=== PATIENT | female | born 1990 | race African-American/Black ===

== ENCOUNTER 2023-06-09 12:38 | Emergency (ER) | payer OTHER ==
[~2023-06-09] VITALS: Ht 162.6 cm; Wt 73.6 kg
[2023-06-09 12:41] VITALS: TEMP 98.3
[2023-06-09 13:29] LABS: BASOPHILS % (AUTO) 0.6 % (0.0-2.0); EOSINOPHILS % (AUTO) 1.2 % (1.0-6.0); HEMATOCRIT 34.8 % (36-46); HEMOGLOBIN 11.6 g/dL (12.0-16.0); LYMPHOCYTES # (AUTO) 2.3 K/uL (1.0-4.8); LYMPHOCYTES % (AUTO) 39.1 % (22.0-44.0); MEAN CORPUSCULAR HEMOGLOBIN 28.6 pg (26.0-34.0); MEAN CORPUSCULAR HGB CONC 33.4 G/dL (31.0-37.0); MEAN CORPUSCULAR VOLUME 86 fL (80-100); MONOCYTES # (AUTO) 0.3 K/uL (0.1-1.0); NEUTROPHILS # (AUTO) 3.1 K/uL (1.8-7.7); NEUTROPHILS % (AUTO) 54.1 % (40.0-70.0); PLATELET COUNT (AUTO) 239 K/uL (150-450); RED BLOOD CELL COUNT(AUTO) 4.06 MIL/uL (4.00-5.20); WHITE BLOOD COUNT (AUTO) 5.8 K/uL (4.5-11.0)
[2023-06-09 13:36] LABS: ANION GAP 9 mmol/L (8-16); CARBON DIOXIDE 25 mmol/L (22-29); CHLORIDE 104 mmol/L (98-107); CREATININE 0.67 mg/dL (0.60-1.30); GLOMERULAR FILTR. RATE CALC > 60 mL/min (>60); GLUCOSE,RANDOM 93 mg/dL (70-110); POTASSIUM 3.9 mmol/L (3.5-5.1); SODIUM SERUM 138 mmol/L (136-145); UREA NITROGEN, BLOOD 9 mg/dL (7-18)
[2023-06-09 13:40] LABS: PROTHROMBIN TIME 10.2 SEC (9.4-11.6)
[2023-06-09 13:44] LABS: TROPONIN I-HIGH SENSITIVITY 7 ng/L (<51)
[2023-06-09 13:49] LABS: B-TYPE NATRIURETIC PEPTIDE 42 pg/mL (0-100)
[2023-06-09 14:02] LABS: ALANINE AMINOTRANSFERASE 20 U/L (12-78); ALBUMIN 3.6 g/dL (3.4-5.0); ALKALINE PHOSPHATASE 39 U/L (46-116); ASPARTATE AMINOTRANSFERASE 17 U/L (15-37); BILIRUBIN,TOTAL 0.3 mg/dL (0.1-1.0); CREATINE KINASE, TOTAL ONLY 90 U/L (26-192); TOTAL PROTEIN, SERUM 7.6 g/dL (6.4-8.2)
[2023-06-09 14:18] LABS: APPEARANCE,URINE CLEAR (CLEAR); BILIRUBIN,URINE NEGATIVE (NEGATIVE); COLOR,URINE LIGHT YELLOW (YELLOW); GLUCOSE, URINE (UA) NEGATIVE (NEGATIVE); KETONES,URINE NEGATIVE (NEGATIVE); LEUKOCYTE ESTERASE ,URINE NEGATIVE (NEGATIVE); NITRATE,URINE NEGATIVE (NEGATIVE); OCCULT BLOOD,URINE NEGATIVE (NEGATIVE); PH,URINE 6.5 (5.0-8.0); PH,URINE DRUG SCREEN 6.5 (5.0-8.0); PROTEIN,URINE NEGATIVE (NEGATIVE); SPECIFIC GRAVITIY, URINE 1.021 (1.003-1.030); UROBILINOGEN,URINE <=1.0 mg/dL (<=1.0)
[2023-06-09 14:19] VITALS: BP 120/77; PULSE 79; RESP 16
[2023-06-09 14:23] LABS: ALCOHOL, URINE DRUG SCREEN NEGATIVE (NEGATIVE); AMPHET/METH SCREEN,URINE NEGATIVE (NEGATIVE); BARBITURATE SCREEN, URINE NEGATIVE (NEGATIVE); BENZODIAZEPINES SCREEN,URINE NEGATIVE (NEGATIVE); CANNABINOID SCREEN,URINE POSITIVE (NEGATIVE); COCAINE SCREEN,URINE NEGATIVE (NEGATIVE); METHADONE SCREEN, URINE NEGATIVE (NEGATIVE); OPIATE SCREEN,URINE NEGATIVE (NEGATIVE); PHENCYCLIDINE SCREEN,URINE NEGATIVE (NEGATIVE)
[2023-06-09 14:24] LABS: COVID AG,FIA SOURCE NASAL SWAB
[2023-06-09 14:48] LABS: SARS-COV2 (COVID) ANTIGEN,FIA Negative (Negative)
[2023-06-09 14:49] LABS: INFLUENZA TYPE A NEGATIVE FOR TYPE A (NEGATIVE); INFLUENZA TYPE B NEGATIVE FOR TYPE B (NEGATIVE)
[2023-06-09] MEDS ORDERED: IBUP-1492 PO (16:08)
== END 2023-06-09 17:08 | disposition home or self-care (01) ==
LOC: EMS 13:20
DX: J06.9 Acute upper respiratory infection, unspecified (principal); R07.89 Other chest pain; F10.20 Alcohol dependence, uncomplicated; J45.909 Unspecified asthma, uncomplicated; F12.90 Cannabis use, unspecified, uncomplicated; Z88.8 Allergy status to other drugs, medicaments and biological substances; Z20.822 Contact with and (suspected) exposure to COVID-19
CPT/HCPCS: 71045; 80053; 80307; 81003; 82550; 83880; 84484; 85025; 85610; 85730; 87804; 93005; 99285; 36415-L1; 36415-TC

== ENCOUNTER 2023-07-06 09:35 | Emergency (ER) | payer OTHER ==
[~2023-07-06] VITALS: Ht 160 cm; Wt 65.9 kg
[~2023-07-06 09:35] MED LIST: IBUP-1492 PO
[2023-07-06 09:40] VITALS: TEMP 98.4
[2023-07-06] MEDS ORDERED: GUAIFDM PO (09:45)
[2023-07-06] MEDS ORDERED: ACET-2080 PO (09:45)
[2023-07-06] MEDS ORDERED: ALBU18HF12 IH (09:45)
[2023-07-06] MEDS ORDERED: IBUP-1554 PO (09:45)
[2023-07-06 10:19] LABS: BASOPHILS % (AUTO) 0.7 % (0.0-2.0); EOSINOPHILS % (AUTO) 0.7 % (1.0-6.0); HEMATOCRIT 36.1 % (36-46); HEMOGLOBIN 12.2 g/dL (12.0-16.0); LYMPHOCYTES # (AUTO) 2.7 K/uL (1.0-4.8); MEAN CORPUSCULAR HGB CONC 33.7 G/dL (31.0-37.0); MEAN CORPUSCULAR VOLUME 86 fL (80-100); MONOCYTES # (AUTO) 0.4 K/uL (0.1-1.0); MONOCYTES % (AUTO) 4.9 % (2.0-9.0); NEUTROPHILS # (AUTO) 4.1 K/uL (1.8-7.7); NEUTROPHILS % (AUTO) 56.7 % (40.0-70.0); PLATELET COUNT (AUTO) 215 K/uL (150-450); RED CELL DISTRIBUTION WIDTH 14.7 % (11.5-14.5); WHITE BLOOD COUNT (AUTO) 7.2 K/uL (4.5-11.0)
[2023-07-06 10:29] LABS: ANION GAP 12 mmol/L (8-16); CARBON DIOXIDE 23 mmol/L (22-29); CHLORIDE 104 mmol/L (98-107); CREATININE 0.88 mg/dL (0.60-1.30); GLOMERULAR FILTR. RATE CALC > 60 mL/min (>60); GLUCOSE,RANDOM 103 mg/dL (70-110); POTASSIUM 3.4 mmol/L (3.5-5.1); SODIUM SERUM 139 mmol/L (136-145); UREA NITROGEN, BLOOD 7 mg/dL (7-18)
[2023-07-06 10:34] LABS: ALANINE AMINOTRANSFERASE 21 U/L (12-78); ALKALINE PHOSPHATASE 37 U/L (46-116); ASPARTATE AMINOTRANSFERASE 21 U/L (15-37); BILIRUBIN,TOTAL 0.5 mg/dL (0.1-1.0); TOTAL PROTEIN, SERUM 7.6 g/dL (6.4-8.2)
[2023-07-06 10:35] LABS: ALCOHOL, BLOOD (SERUM) < 3 mg/dL (0-10)
[2023-07-06 10:49] LABS: COVID AG,FIA SOURCE NASAL SWAB
[2023-07-06 11:11] LABS: SARS-COV2 (COVID) ANTIGEN,FIA Negative (Negative)
[2023-07-06 11:12] LABS: INFLUENZA TYPE A NEGATIVE FOR TYPE A (NEGATIVE); INFLUENZA TYPE B NEGATIVE FOR TYPE B (NEGATIVE)
[2023-07-06] MEDS ORDERED: LORazepam 2 MG TABLET PO ONE (11:15)
[2023-07-06] MEDS ORDERED: FLUO20CA36 PO (11:37)
[2023-07-06] MEDS ORDERED: LORA-1000 PO (11:37)
[2023-07-06 11:49] VITALS: BP 142/90; PULSE 89; RESP 17
== END 2023-07-06 11:49 | disposition home or self-care (01) ==
LOC: EMS 09:40
DX: F41.9 Anxiety disorder, unspecified (principal); R07.89 Other chest pain; J45.909 Unspecified asthma, uncomplicated; F10.20 Alcohol dependence, uncomplicated; F12.90 Cannabis use, unspecified, uncomplicated; Z20.822 Contact with and (suspected) exposure to COVID-19; Y90.9 Presence of alcohol in blood, level not specified
CPT/HCPCS: 99285; 71045; 87426; 80053; 84703; 85025; 87804; 36415; 93005; G0480

== ENCOUNTER 2023-09-27 20:16 | Emergency (ER) | payer OTHER ==
[~2023-09-27] VITALS: Ht 165.1 cm; Wt 70.0 kg
[~2023-09-27 20:16] MED LIST changes: +ESCI5TAB16 PO; -IBUP-1492 PO; +PROP10TA72 PO; +TRAZ-252 PO
[2023-09-27 20:51] VITALS: TEMP 98.6
[2023-09-27 21:31] LABS: BASOPHILS % (AUTO) 0.7 % (0.0-2.0); EOSINOPHILS % (AUTO) 1.9 % (1.0-6.0); HEMATOCRIT 35.7 % (36-46); HEMOGLOBIN 11.9 g/dL (12.0-16.0); LYMPHOCYTES # (AUTO) 4.3 K/uL (1.0-4.8); MEAN CORPUSCULAR HEMOGLOBIN 28.5 pg (26.0-34.0); MEAN CORPUSCULAR HGB CONC 33.4 G/dL (31.0-37.0); MEAN CORPUSCULAR VOLUME 85 fL (80-100); MONOCYTES # (AUTO) 0.5 K/uL (0.1-1.0); MONOCYTES % (AUTO) 6.2 % (2.0-9.0); NEUTROPHILS # (AUTO) 3.5 K/uL (1.8-7.7); NEUTROPHILS % (AUTO) 41.2 % (40.0-70.0); PLATELET COUNT (AUTO) 245 K/uL (150-450); RED BLOOD CELL COUNT(AUTO) 4.18 MIL/uL (4.00-5.20); RED CELL DISTRIBUTION WIDTH 14.7 % (11.5-14.5); WHITE BLOOD COUNT (AUTO) 8.5 K/uL (4.5-11.0)
[2023-09-27 21:41] LABS: ANION GAP 9 mmol/L (8-16); CALCIUM, TOTAL 8.7 mg/dL (8.8-10.5); CARBON DIOXIDE 26 mmol/L (22-29); CHLORIDE 102 mmol/L (98-107); CREATININE 0.77 mg/dL (0.60-1.30); GLOMERULAR FILTR. RATE CALC > 60 mL/min (>60); GLUCOSE,RANDOM 106 mg/dL (70-110); POTASSIUM 4.3 mmol/L (3.5-5.1); SODIUM SERUM 137 mmol/L (136-145); UREA NITROGEN, BLOOD 12 mg/dL (7-18)
[2023-09-27 21:47] LABS: ALANINE AMINOTRANSFERASE 20 U/L (12-78); ALBUMIN 3.4 g/dL (3.4-5.0); ALKALINE PHOSPHATASE 36 U/L (46-116); ASPARTATE AMINOTRANSFERASE 16 U/L (15-37); TOTAL PROTEIN, SERUM 7.4 g/dL (6.4-8.2)
[2023-09-27 21:49] LABS: TROPONIN I-HIGH SENSITIVITY 6 ng/L (<51)
[2023-09-27 22:00] LABS: BILIRUBIN,TOTAL 0.1 mg/dL (0.1-1.0)
[2023-09-28 00:08] VITALS: BP 120/80; PULSE 62; RESP 16
== END 2023-09-28 00:20 | disposition home or self-care (01) ==
LOC: EMS 20:24
DX: R00.2 Palpitations (principal); F10.20 Alcohol dependence, uncomplicated; F41.9 Anxiety disorder, unspecified; J45.909 Unspecified asthma, uncomplicated; F32.A Depression, unspecified; F12.90 Cannabis use, unspecified, uncomplicated
CPT/HCPCS: 71045; 80053; 84484; 84703; 85025; 93005; 99285; 36415-L1; 36415-TC

== ENCOUNTER 2023-11-14 13:40 | Emergency (ER) | payer OTHER ==
[~2023-11-14] VITALS: Ht 162.6 cm; Wt 72.7 kg
[2023-11-14 13:40] VITALS: BP 124/65; PULSE 72; RESP 18; TEMP 98.3
[2023-11-14] MEDS ORDERED: CLON-592 PO (13:46)
[2023-11-14] MEDS ORDERED: HYDR-3831 PO (13:46)
[2023-11-14] MEDS ORDERED: PROP10TA73 PO (13:46)
== END 2023-11-14 15:17 | disposition home or self-care (01) ==
LOC: EMS 13:46
DX: S10.93XA Contusion of unspecified part of neck, initial encounter (principal); F41.9 Anxiety disorder, unspecified; F32.A Depression, unspecified; J45.909 Unspecified asthma, uncomplicated; F12.90 Cannabis use, unspecified, uncomplicated; W57.XXXA Bitten or stung by nonvenomous insect and other nonvenomous arthropods, initial encounter; Y93.89 Activity, other specified; Y92.89 Other specified places as the place of occurrence of the external cause; Y99.8 Other external cause status
CPT/HCPCS: 99281; Z7502

== ENCOUNTER 2024-03-13 19:07 | Emergency (ER) | payer OTHER ==
[~2024-03-13] VITALS: Ht 163.8 cm; Wt 77.3 kg
[~2024-03-13 19:07] MED LIST changes: +CLON-592 PO; -ESCI5TAB16 PO; +HYDR-3831 PO; -PROP10TA72 PO; +PROP10TA73 PO; -TRAZ-252 PO
[2024-03-13 19:29] VITALS: BP 126/83; PULSE 84; RESP 12; TEMP 100.2; O2SAT 97
[2024-03-14] MEDS ORDERED: CYCL-448 PO (01:01)
[2024-03-14] MEDS: LIDOCAINE 5% TRANSDERMAL PATCH TD ONE (01:04)
== END 2024-03-14 01:06 | disposition home or self-care (01) ==
LOC: EMS 19:07
DX: S80.12XA Contusion of left lower leg, initial encounter (principal); J45.909 Unspecified asthma, uncomplicated; F41.9 Anxiety disorder, unspecified; F12.90 Cannabis use, unspecified, uncomplicated; X58.XXXA Exposure to other specified factors, initial encounter; Y93.89 Activity, other specified; Y92.89 Other specified places as the place of occurrence of the external cause; Y99.8 Other external cause status
CPT/HCPCS: 93971; 99284; Z7502; Z7610

== ENCOUNTER 2024-04-10 14:50 | Emergency (ER) | payer OTHER ==
[~2024-04-10] VITALS: Ht 162.6 cm; Wt 68.2 kg
[~2024-04-10 14:50] MED LIST changes: +CYCL-448 PO
[2024-04-10 14:52] VITALS: BP 136/90; PULSE 82; RESP 18; TEMP 98.7; O2SAT 100
[2024-04-10] MEDS ORDERED: ACET-66 PO (15:42)
[2024-04-10] MEDS ORDERED: CEPH-558 PO (15:42)
== END 2024-04-10 16:08 | disposition home or self-care (01) ==
LOC: EMS 14:50
DX: S60.562A Insect bite (nonvenomous) of left hand, initial encounter (principal); T78.40XA Allergy, unspecified, initial encounter; F41.9 Anxiety disorder, unspecified; J45.909 Unspecified asthma, uncomplicated; F12.90 Cannabis use, unspecified, uncomplicated; W57.XXXA Bitten or stung by nonvenomous insect and other nonvenomous arthropods, initial encounter; Y93.89 Activity, other specified; Y92.89 Other specified places as the place of occurrence of the external cause; Y99.8 Other external cause status
CPT/HCPCS: 99283; Z7502

== ENCOUNTER 2024-08-03 22:10 | Emergency (ER) | payer OTHER ==
[~2024-08-03] VITALS: Ht 165.1 cm; Wt 81.0 kg
[~2024-08-03 22:10] MED LIST changes: +ACET-66 PO; +CEPH-558 PO; -CLON-592 PO; -CYCL-448 PO; -PROP10TA73 PO
[2024-08-03 22:42] VITALS: TEMP 98.3
[2024-08-04] MEDS: IBUPROFEN 400 MG TABLET PO ONE (00:40)
[2024-08-04] MEDS: ACETAMINOPHEN 325 MG TABLET PO ONE (00:41)
[2024-08-04 02:12] VITALS: BP 147/113; PULSE 66; RESP 14; O2SAT 98
== END 2024-08-04 02:21 | disposition home or self-care (01) ==
LOC: EMS 22:10
DX: M79.601 Pain in right arm (principal); R20.2 Paresthesia of skin; F12.90 Cannabis use, unspecified, uncomplicated; J45.909 Unspecified asthma, uncomplicated; F41.9 Anxiety disorder, unspecified
CPT/HCPCS: 93005; 99283

== ENCOUNTER 2025-03-08 04:59 | Emergency (ER) | payer OTHER ==
[~2025-03-08] VITALS: Ht 162.6 cm; Wt 85.0 kg
[2025-03-08 05:04] VITALS: BP 143/93; PULSE 80; RESP 16; TEMP 98.1; O2SAT 100
== END 2025-03-08 05:40 | disposition home or self-care (01) ==
LOC: EMS 05:00
DX: S00.432A Contusion of left ear, initial encounter (principal); H93.12 Tinnitus, left ear; I10 Essential (primary) hypertension; F12.90 Cannabis use, unspecified, uncomplicated; J45.909 Unspecified asthma, uncomplicated; F41.9 Anxiety disorder, unspecified; Y04.0XXA Assault by unarmed brawl or fight, initial encounter; Y93.89 Activity, other specified; Y92.89 Other specified places as the place of occurrence of the external cause; Y99.8 Other external cause status
CPT/HCPCS: 99282; Z7502

== ENCOUNTER 2025-04-11 13:35 | Emergency (ER) | payer OTHER ==
[~2025-04-11] VITALS: Ht 162.6 cm; Wt 84.1 kg
[2025-04-11 13:44] VITALS: BP 139/98; PULSE 100; RESP 18; TEMP 98.3; O2SAT 100
[2025-04-11] MEDS ORDERED: ACET-2247 PO (15:32)
[2025-04-11] MEDS ORDERED: IBUP-1492 PO (15:32)
[2025-04-11] MEDS: ACETAMINOPHEN 500 MG TABLET PO ONE (15:52)
[2025-04-11] MEDS: KETOROLAC TROMETHAMINE 30 MG/ML VIAL IM ONE (15:52)
== END 2025-04-11 16:04 | disposition home or self-care (01) ==
LOC: EMS 13:35
DX: S93.402A Sprain of unspecified ligament of left ankle, initial encounter (principal); J45.909 Unspecified asthma, uncomplicated; F41.9 Anxiety disorder, unspecified; F32.A Depression, unspecified; F10.20 Alcohol dependence, uncomplicated; F12.90 Cannabis use, unspecified, uncomplicated; Z91.018 Allergy to other foods; W10.9XXA Fall (on) (from) unspecified stairs and steps, initial encounter; Y93.89 Activity, other specified; Y92.89 Other specified places as the place of occurrence of the external cause; Y99.8 Other external cause status; Y90.9 Presence of alcohol in blood, level not specified
CPT/HCPCS: 99283; 73610; 96372; J1885